=== PATIENT | male | born 1935 | race Caucasian/White ===

== ENCOUNTER 2019-02-28 07:53 | Outpatient (CLI) | payer MEDICARE, OTHER | END 2019-02-28 23:59 | disposition home or self-care (01) | LOC: CVU 07:53 | PROVIDERS: ATTEND Nurse Practitioner Family | DX: I08.3 Combined rheumatic disorders of mitral, aortic and tricuspid valves (principal); I10 Essential (primary) hypertension; I48.91 Unspecified atrial fibrillation; E78.5 Hyperlipidemia, unspecified; Z85.038 Personal history of other malignant neoplasm of large intestine; Z95.0 Presence of cardiac pacemaker | CPT/HCPCS: 93306 ==

== ENCOUNTER 2020-04-24 11:36 | Inpatient (IN) | payer MEDICARE, OTHER ==
[~2020-04-24] VITALS: Ht 188 cm; Wt 84.9 kg
[~2020-04-24 11:36] MED LIST: ACID1TAB7 PO; FERR-51 PO; LISI20TA21 PO; OMEP-110 PO; RIVA20TA PO; SUCR1ORA5 PO; TAMS-11 PO; amlodipine PO; eliquis PO; lovastatin PO
--- NOTE | 2020-04-24 12:08 | NUR ---
small package and bundle sorter clerk: pt from lobby to room 8
[2020-04-24 13:21] LABS: BASOPHILS % (AUTO) 1 % (0-1); EOSINOPHILS % (AUTO) 1 % (1-7); LYMPHOCYTES % (AUTO) 11 % (22-44); MD NO; MEAN CORPUSCULAR HEMOGLOBIN 35.9 pg (27.5-34.5); MEAN CORPUSCULAR HGB CONC 33.4 g/dL (33.2-36.2); MEAN PLATELET VOLUME 7.7 fL (7.4-10.4); MONOCYTES % (AUTO) 8 % (2-9); NEUTROPHILS % (AUTO) 80 % (42-75); PLATELET COUNT 215 x10^3/uL (130-400); RED BLOOD COUNT 3.59 x10^6/uL (4.38-5.82)
[2020-04-24 13:31] LABS: INTERNATIONAL NORMALIZED RATIO 1.36 (0.93-1.1); PROTHROMBIN TIME 14.5 Seconds (9.6-11.5)
[2020-04-24 13:32] LABS: ALANINE AMINOTRANSFERASE 102 U/L (12-78); ALBUMIN 2.6 g/dL (3.4-5.0); ANION GAP 7 mmol/L (5-15); CALCIUM 8.8 mg/dL (8.5-10.1); CHLORIDE 104 mmol/L (98-107); CREATININE 1.14 mg/dL (0.7-1.3)
[2020-04-24 13:35] LABS: ALKALINE PHOSPHATASE 742 U/L (45-117); BILIRUBIN,TOTAL 13.7 mg/dL (0.2-1.0); TOTAL PROTEIN 6.7 g/dL (6.4-8.2)
[2020-04-24] MEDS ORDERED: OMEP-110 PO (14:46)
[2020-04-24] MEDS ORDERED: MULT-717 PO (14:51)
[2020-04-24] MEDS ORDERED: FERR-46 PO (14:51)
[2020-04-24] MEDS ORDERED: CALC-780 PO (14:51)
[2020-04-24] MEDS ORDERED: LISI-170 PO (14:51)
--- NOTE | 2020-04-24 14:56 | NUR ---
dr glaser spoke with dr snow
[2020-04-24] MEDS ORDERED: SODIUM CHLORIDE FLUSH 10ML SYR IVF PRN (15:00)
[2020-04-24] MEDS ORDERED: MELATONIN 5 MG TABLET PO PRN (16:00)
[2020-04-24] MEDS ORDERED: POLYETHYLENE GLYCOL 17 GM PACKET PO PRN (16:00)
[2020-04-24] MEDS ORDERED: hydrALAzine 20 MG/ML, 1ML IVPush PRN (16:00)
[2020-04-24] MEDS ORDERED: BISACODYL 10 MG SUPP PR PRN (16:00)
[2020-04-24] MEDS ORDERED: DOCUSATE 100 MG CAPSULE PO PRN (16:00)
[2020-04-24] MEDS ORDERED: ONDANSETRON 2MG/ML, 2ML IVPush PRN (16:00)
[2020-04-24] MEDS ORDERED: LORazepam 2 MG/ML, 1ML IVPush PRN (16:00)
[2020-04-24] MEDS ORDERED: ZOLPIDEM 5MG TABLET PO PRN (16:00)
[2020-04-24] MEDS ORDERED: ACETAMINOPHEN 325 MG TABLET PO PRN (16:00)
--- NOTE | 2020-04-24 16:12 | NUR ---
MRI called, requested pacemaker card be faxed. Faxed by TOMMIE Orourke.
--- NOTE | 2020-04-24 17:18 | NUR ---
Pt up to bathroom without assistance.
[2020-04-24 18:12] LABS: FREE T4 (FREE THYROXINE) 1.31 ng/dL (0.76-1.46)
--- NOTE | 2020-04-24 18:20 | NUR ---
First attempt to call report.
[2020-04-24] MEDS ORDERED: OMNIPAQUE 350 MG/ML, 100ML BOTTLE ONE (18:54)
--- NOTE | 2020-04-24 19:02 | NUR ---
This RN attempted to call report 3 times, including asking to give report to underwriting clerks supervisor.
--- NOTE | 2020-04-24 19:08 | NUR ---
Pt to be admitted to [facility], room 421. Report called to Cherry Walker.
[2020-04-24 19:20] VITALS: BP 125/70
[2020-04-24 19:30] VITALS: BP 125/70
[2020-04-24 20:20] VITALS: BP 120/74
[2020-04-24] MEDS ORDERED: PIPERACILLIN/TAZO/PMX 3.375GM 50 ML IV SCH (20:30)
[2020-04-24] MEDS: FAMOTIDINE 20 MG TABLET PO SCH (21:20)
[2020-04-25 01:25] VITALS: BP 117/82
[2020-04-25 05:04] LABS: BASOPHILS % (AUTO) 0 % (0-1); EOSINOPHILS % (AUTO) 3 % (1-7); LYMPHOCYTES % (AUTO) 15 % (22-44); MEAN CORPUSCULAR HEMOGLOBIN 36.3 pg (27.5-34.5); MEAN CORPUSCULAR HGB CONC 34.6 g/dL (33.2-36.2); MEAN PLATELET VOLUME 8.1 fL (7.4-10.4); MONOCYTES % (AUTO) 12 % (2-9); NEUTROPHILS % (AUTO) 70 % (42-75); PLATELET COUNT 195 x10^3/uL (130-400); RED CELL DISTRIBUTION WIDTH 14.2 % (9.4-14.8)
[2020-04-25 05:07] LABS: MD NO
[2020-04-25 05:13] LABS: ALBUMIN 2.3 g/dL (3.4-5.0); ANION GAP 7 mmol/L (5-15); CALCIUM 8.7 mg/dL (8.5-10.1); CHLORIDE 107 mmol/L (98-107)
[2020-04-25 05:17] LABS: ALANINE AMINOTRANSFERASE 104 U/L (12-78); ALKALINE PHOSPHATASE 746 U/L (45-117); BILIRUBIN,TOTAL 12.8 mg/dL (0.2-1.0); CREATININE 1.02 mg/dL (0.7-1.3)
[2020-04-25 07:29] VITALS: BP 147/80
[2020-04-25] MEDS: FAMOTIDINE 20 MG TABLET PO SCH ×2 (08:23→20:49)
[2020-04-25] MEDS: D5%-0.45% NACL 1,000 ML IV SCH ×2 (09:22→23:18)
[2020-04-25] MEDS: CEFTRIAXONE PMX 1GM/50ML 50 ML IV SCH (10:59)
[2020-04-25 14:08] VITALS: BP 129/75
[2020-04-25 16:24] LABS: ANA SCREEN NEGATIVE (Negative)
[2020-04-25 19:43] VITALS: BP 140/82
[2020-04-26 01:41] VITALS: BP 134/74
[2020-04-26 06:44] LABS: BASOPHILS % (AUTO) 1 % (0-1); EOSINOPHILS % (AUTO) 5 % (1-7); LYMPHOCYTES % (AUTO) 18 % (22-44); MEAN CORPUSCULAR HGB CONC 34.2 g/dL (33.2-36.2); MEAN PLATELET VOLUME 8.8 fL (7.4-10.4); MONOCYTES % (AUTO) 12 % (2-9); NEUTROPHILS % (AUTO) 64 % (42-75); PLATELET COUNT 199 x10^3/uL (130-400); RED BLOOD COUNT 3.31 x10^6/uL (4.38-5.82); RED CELL DISTRIBUTION WIDTH 14.5 % (9.4-14.8)
[2020-04-26 06:48] VITALS: BP 134/74
[2020-04-26 06:48] LABS: MD NO
[2020-04-26 07:00] LABS: ALBUMIN 2.2 g/dL (3.4-5.0); ANION GAP 8 mmol/L (5-15); CALCIUM 8.4 mg/dL (8.5-10.1); CHLORIDE 105 mmol/L (98-107)
[2020-04-26 07:04] LABS: BILIRUBIN,INDIRECT 2.3 mg/dL (0.0-2.0); BILIRUBIN,TOTAL 12.5 mg/dL (0.2-1.0); TOTAL PROTEIN 5.9 g/dL (6.4-8.2)
[2020-04-26] MEDS: FAMOTIDINE 20 MG TABLET PO SCH ×2 (07:40→21:02)
[2020-04-26 07:44] LABS: BILIRUBIN, DIRECT 10.2 mg/dL (0.1-0.2)
[2020-04-26] MEDS: CEFTRIAXONE PMX 1GM/50ML 50 ML IV SCH (10:01)
[2020-04-26] MEDS: D5%-0.45% NACL 1,000 ML IV SCH (10:02)
[2020-04-26] MEDS ORDERED: CHLORHEXIDINE 15 ML UDC ONE ×2 (12:25)
[2020-04-26] MEDS ORDERED: CHLORHEXIDINE 15 ML UDC MM ONE (12:30)
[2020-04-26] MEDS ORDERED: PROPOFOL 10 MG/ML, 20ML ONE (12:50)
[2020-04-26] MEDS ORDERED: SUCCINYLCHOLINE 20 MG/ML, 10ML ONE (12:50)
[2020-04-26] MEDS ORDERED: FENTANYL PF 100 MCG/2ML ONE (12:50)
[2020-04-26] MEDS ORDERED: ROCURONIUM 10MG/ML,5ML ONE (12:58)
[2020-04-26] MEDS ORDERED: ONDANSETRON 2MG/ML, 2ML ONE (13:18)
[2020-04-26 13:22] LABS: INTERNATIONAL NORMALIZED RATIO 1.16 (0.93-1.1); PROTHROMBIN TIME 12.4 Seconds (9.6-11.5)
[2020-04-26] MEDS ORDERED: OMNIPAQUE 350 MG/ML, 50 ML BOTTLE ONE (13:26)
[2020-04-26 14:25] VITALS: BP 138/87
[2020-04-26 19:47] VITALS: BP 131/77
[2020-04-27 01:38] VITALS: BP 132/73
[2020-04-27] MEDS ORDERED: BUPIVACAINE/PF 0.5% ONE (06:17)
[2020-04-27] MEDS ORDERED: EPINEPHRINE 1 MG/ML, 1ML ONE (06:18)
[2020-04-27] MEDS ORDERED: FENTANYL PF 100 MCG/2ML ONE (07:01)
[2020-04-27] MEDS ORDERED: SUCCINYLCHOLINE 20 MG/ML, 10ML ONE (07:23)
[2020-04-27] MEDS ORDERED: PROPOFOL 10 MG/ML, 20ML ONE (07:23)
[2020-04-27] MEDS ORDERED: ONDANSETRON 2MG/ML, 2ML ONE (07:23)
[2020-04-27] MEDS ORDERED: LIDOCAINE-MPF 2% ,5ML ONE (07:23)
[2020-04-27] MEDS ORDERED: SUGAMMADEX 200 MG/2 ML IVPush ONE (07:23)
[2020-04-27] MEDS ORDERED: ROCURONIUM 10MG/ML,5ML ONE (07:23)
[2020-04-27] MEDS ORDERED: CEFOTETAN 2 GM ONE (07:23)
[2020-04-27] MEDS ORDERED: DEXAMETHASONE 4 MG/ML, 5ML ONE (07:23)
[2020-04-27] MEDS ORDERED: FENTANYL PF 100 MCG/2ML IV PRN (07:30)
[2020-04-27] MEDS ORDERED: PROMETHAZINE 25 MG/ML, 1ML IVPush PRN (07:30)
[2020-04-27] MEDS ORDERED: MAGNESIUM SULFATE PMX 2GM/50ML 50 ML IV ONE (07:30)
[2020-04-27] MEDS ORDERED: ONDANSETRON 2MG/ML, 2ML IVPush PRN (07:30)
[2020-04-27] MEDS ORDERED: HYDROcodone/APAP 7.5-325MG/15ML UDC PO PRN (07:30)
[2020-04-27] MEDS ORDERED: MEPERIDINE/PF 25MG/0.5ML IVPush PRN (07:30)
[2020-04-27] MEDS ORDERED: OXYcodone 5 MG/5 ML ORAL.SOL UDC PO PRN (07:30)
[2020-04-27] MEDS ORDERED: HYDROmorphone 1 MG/ML, 1ML INJ IVPush PRN (07:30)
[2020-04-27] MEDS ORDERED: BUPIVACAINE/PF-EPI 0.5% 1:200K INFIL ONE (08:07)
[2020-04-27] MEDS ORDERED: HYDROcodone/APAP 7.5-325MG/15ML UDC ONE (08:28)
[2020-04-27 09:24] VITALS: BP 159/79
[2020-04-27] MEDS: FAMOTIDINE 20 MG TABLET PO SCH ×2 (09:24→21:02)
[2020-04-27] MEDS: CEFTRIAXONE PMX 1GM/50ML 50 ML IV SCH (09:26)
[2020-04-27] MEDS ORDERED: morphine SULFATE 10 MG/ML, 1ML ONE (09:44)
[2020-04-27] MEDS ORDERED: MORPHINE SULFATE 4 MG/ML, 1ML IVPush ONE (10:00)
[2020-04-27] MEDS ORDERED: morphine SULFATE 10 MG/ML, 1ML IV PRN (10:30)
[2020-04-27] MEDS ORDERED: ONDANSETRON 2MG/ML, 2ML IV PRN (10:30)
[2020-04-27] MEDS ORDERED: HYDROmorphone 2 MG/ML, 1ML IVPush PRN ×2 (10:30)
[2020-04-27] MEDS: CEFOTETAN PMX 1GM/50ML 50 ML IV SCH ×2 (10:51→23:23)
[2020-04-27] MEDS: POTASSIUM CHLORIDE 20 MEQ in LACTATED RINGERS 1,000 ML IV SCH (10:51)
[2020-04-27] MEDS: ENOXAPARIN 40 MG/0.4 ML SQ SCH (11:23)
[2020-04-27 11:52] LABS: ALBUMIN 2.6 g/dL (3.4-5.0)
[2020-04-27 11:54] LABS: BILIRUBIN,INDIRECT 2.1 mg/dL (0.0-2.0); BILIRUBIN,TOTAL 14.5 mg/dL (0.2-1.0); TOTAL PROTEIN 6.9 g/dL (6.4-8.2)
[2020-04-27 12:04] LABS: BILIRUBIN, DIRECT 12.4 mg/dL (0.1-0.2)
[2020-04-27 15:15] VITALS: BP 148/79
[2020-04-27 19:24] VITALS: BP 150/85
[2020-04-27] MEDS: OXYcodone IR 5MG TABLET PO PRN (21:02)
[2020-04-28 01:21] VITALS: BP 140/83
[2020-04-28] MEDS: POTASSIUM CHLORIDE 20 MEQ in LACTATED RINGERS 1,000 ML IV SCH (02:58)
[2020-04-28 06:47] VITALS: BP 158/85
[2020-04-28] MEDS: FAMOTIDINE 20 MG TABLET PO SCH ×2 (08:31→19:52)
[2020-04-28] MEDS: OXYcodone IR 5MG TABLET PO PRN ×2 (08:31→15:41)
[2020-04-28 09:24] LABS: BASOPHILS % (AUTO) 0 % (0-1); EOSINOPHILS % (AUTO) 0 % (1-7); LYMPHOCYTES % (AUTO) 13 % (22-44); MEAN CORPUSCULAR HEMOGLOBIN 35.9 pg (27.5-34.5); MEAN CORPUSCULAR HGB CONC 34.1 g/dL (33.2-36.2); MEAN PLATELET VOLUME 8.5 fL (7.4-10.4); MONOCYTES % (AUTO) 9 % (2-9); NEUTROPHILS % (AUTO) 78 % (42-75); PLATELET COUNT 225 x10^3/uL (130-400); RED BLOOD COUNT 3.44 x10^6/uL (4.38-5.82); RED CELL DISTRIBUTION WIDTH 14.1 % (9.4-14.8)
[2020-04-28 09:28] LABS: MD NO
[2020-04-28 09:38] LABS: ANION GAP 6 mmol/L (5-15); CALCIUM 8.6 mg/dL (8.5-10.1); CHLORIDE 103 mmol/L (98-107); CREATININE 0.83 mg/dL (0.7-1.3)
[2020-04-28 09:43] LABS: ALBUMIN 2.3 g/dL (3.4-5.0)
[2020-04-28 09:45] LABS: BILIRUBIN,INDIRECT 1.5 mg/dL (0.0-2.0); BILIRUBIN,TOTAL 9.5 mg/dL (0.2-1.0); TOTAL PROTEIN 6.1 g/dL (6.4-8.2)
[2020-04-28] MEDS: CEFTRIAXONE PMX 1GM/50ML 50 ML IV SCH (10:22)
[2020-04-28] MEDS: ENOXAPARIN 40 MG/0.4 ML SQ SCH (11:18)
[2020-04-28 12:36] VITALS: BP 156/81
[2020-04-28 18:41] VITALS: BP 145/72
[2020-04-29] VITALS: BP 132/79
[2020-04-29 05:02] LABS: INTERNATIONAL NORMALIZED RATIO 1.11 (0.93-1.1); PROTHROMBIN TIME 11.9 Seconds (9.6-11.5)
[2020-04-29 05:06] LABS: ALANINE AMINOTRANSFERASE 93 U/L (12-78); ALBUMIN 2.1 g/dL (3.4-5.0); ANION GAP 4 mmol/L (5-15); CALCIUM 8.2 mg/dL (8.5-10.1); CHLORIDE 104 mmol/L (98-107); CREATININE 0.82 mg/dL (0.7-1.3)
[2020-04-29 05:07] LABS: ALKALINE PHOSPHATASE 803 U/L (45-117); BILIRUBIN,TOTAL 7.8 mg/dL (0.2-1.0); TOTAL PROTEIN 5.9 g/dL (6.4-8.2)
[2020-04-29 05:14] LABS: BASOPHILS % (AUTO) 1 % (0-1); EOSINOPHILS % (AUTO) 2 % (1-7); LYMPHOCYTES % (AUTO) 19 % (22-44); MEAN CORPUSCULAR HEMOGLOBIN 36.4 pg (27.5-34.5); MEAN CORPUSCULAR HGB CONC 34.8 g/dL (33.2-36.2); MEAN PLATELET VOLUME 8.3 fL (7.4-10.4); MONOCYTES % (AUTO) 13 % (2-9); NEUTROPHILS % (AUTO) 66 % (42-75); PLATELET COUNT 224 x10^3/uL (130-400); RED BLOOD COUNT 3.24 x10^6/uL (4.38-5.82); RED CELL DISTRIBUTION WIDTH 14.3 % (9.4-14.8)
[2020-04-29] MEDS: OXYcodone IR 5MG TABLET PO PRN (05:34)
[2020-04-29 05:59] LABS: MD SCAN
[2020-04-29 07:31] VITALS: BP 148/84
[2020-04-29] MEDS: FAMOTIDINE 20 MG TABLET PO SCH (08:18)
[2020-04-29] MEDS: CEFTRIAXONE PMX 1GM/50ML 50 ML IV SCH (08:33)
[2020-04-29] MEDS ORDERED: CEFD300C37 PO (09:19)
[2020-04-29 12:28] VITALS: BP 135/76
[2020-04-29] MEDS ORDERED: RIVAROXABAN 20 MG TABLET PO SCH (17:00)
== END 2020-04-29 12:38 | disposition home health service (06) | DRG 418 ==
LOC: ED 12:35 → EDIP 14:50 → 4WST 19:16 → DCLOUNGE 04-29 12:31
PROVIDERS: ADMIT Internal Medicine; ATTEND Internal Medicine
PROC: BF131ZZ Fluoroscopy of Gallbladder and Bile Ducts using Low Osmolar Contrast (ICD-10-PCS; 2020-04-26)
PROC: 0FC98ZZ Extirpation of Matter from Common Bile Duct, Via Natural or Artificial Opening Endoscopic (ICD-10-PCS; principal; 2020-04-26 13:00)
PROC: 0FT44ZZ Resection of Gallbladder, Percutaneous Endoscopic Approach (ICD-10-PCS; 2020-04-27)
PROC: 0WQF0ZZ Repair Abdominal Wall, Open Approach (ICD-10-PCS; 2020-04-27)
PROC: 0DNW4ZZ Release Peritoneum, Percutaneous Endoscopic Approach (ICD-10-PCS; 2020-04-27)
DX: K80.63 Calculus of gallbladder and bile duct with acute cholecystitis with obstruction (principal); I48.20 Chronic atrial fibrillation, unspecified; K25.9 Gastric ulcer, unspecified as acute or chronic, without hemorrhage or perforation; K42.9 Umbilical hernia without obstruction or gangrene; E78.5 Hyperlipidemia, unspecified; I10 Essential (primary) hypertension; Z96.643 Presence of artificial hip joint, bilateral; D72.829 Elevated white blood cell count, unspecified; Z20.822 Contact with and (suspected) exposure to COVID-19; Z79.01 Long term (current) use of anticoagulants; Z80.42 Family history of malignant neoplasm of prostate; Z82.49 Family history of ischemic heart disease and other diseases of the circulatory system; Z85.038 Personal history of other malignant neoplasm of large intestine; Z87.891 Personal history of nicotine dependence; Z95.0 Presence of cardiac pacemaker; Z90.49 Acquired absence of other specified parts of digestive tract; Z88.2 Allergy status to sulfonamides
CPT/HCPCS: 36415; 71045; 74160; 74328; 76700; 80048; 80053; 80074; 80076; 82105; 82140; 82378; 82607; 82787; 83516; 83690; 83735; 84100; 84439; 84443; 85025; 85610; 85730; 86038; 86301; 87635; 88304; 93005; 93306; 99285; G0378; J0171; J0696; J1100; J1650; J2405; J2704; J3010; J3480; Q9967; C1769; J0330; J2270; J3475; J7120

== ENCOUNTER → 2020-05-22 | Outpatient (CLI) | payer MEDICARE, OTHER ==
[~2020-05-22] MED LIST changes: +CALC-780 PO; +CEFD300C37 PO; +FERR-46 PO; +LISI-170 PO; +MULT-717 PO
== END | disposition home or self-care (01) ==
LOC: RAD 12:32
PROVIDERS: ATTEND Surgery
DX: K80.12 Calculus of gallbladder with acute and chronic cholecystitis without obstruction (principal); R17 Unspecified jaundice
CPT/HCPCS: 78226; A9537

== ENCOUNTER 2020-07-06 16:36 | Emergency (ER) | payer MEDICARE, OTHER ==
[~2020-07-06] VITALS: Ht 188 cm; Wt 94.1 kg
--- NOTE | 2020-07-06 16:59 | NUR ---
MANIFEST CLERK: PT TO ROOM FROM TRIAGE VIA W/C
--- NOTE | 2020-07-06 17:18 | NUR ---
PT AMBULATORY TO ROOM 12 W/ C/O BILAT PITTING EDEMA, ERYTHEMA AND SCRAPES TO BILAT TOES. PER PT SCRAPED BILAT TOES ON THE SIDEWALK 2 DAYS AGO AFTER THE SWELLING TO FEEET HAD STARTED. PT STATES HE IS NOT UTD ON TETANUS SHOT. +NUMBNESS TO BILAT FEET. DENIES HX CHF. PT RESTING ON GURNEY. NADN. MONITORS APPLIED. VSS. WARM BLANKET PROVIDED.
[2020-07-06 18:32] LABS: BASOPHILS % (AUTO) 2 % (0-1); EOSINOPHILS % (AUTO) 11 % (1-7); LYMPHOCYTES % (AUTO) 25 % (22-44); MEAN CORPUSCULAR HEMOGLOBIN 34.3 pg (27.5-34.5); MEAN CORPUSCULAR HGB CONC 33.8 g/dL (33.2-36.2); MONOCYTES % (AUTO) 11 % (2-9); NEUTROPHILS % (AUTO) 52 % (42-75); PLATELET COUNT 172 x10^3/uL (130-400); RED BLOOD COUNT 3.92 x10^6/uL (4.38-5.82); RED CELL DISTRIBUTION WIDTH 12.9 % (9.4-14.8)
[2020-07-06 18:46] LABS: ALBUMIN 3.5 g/dL (3.4-5.0); ANION GAP 8 mmol/L (5-15); CALCIUM 8.8 mg/dL (8.5-10.1); CHLORIDE 98 mmol/L (98-107)
[2020-07-06 18:52] LABS: ALANINE AMINOTRANSFERASE 28 U/L (12-78); ALKALINE PHOSPHATASE 180 U/L (45-117); BILIRUBIN,TOTAL 1.3 mg/dL (0.2-1.0); C-REACTIVE PROTEIN, QUANT 0.51 mg/dL (0.02-0.49); CREATININE 0.72 mg/dL (0.7-1.3); TOTAL PROTEIN 6.9 g/dL (6.4-8.2)
[2020-07-06] MEDS ORDERED: CEPHALEXIN 500 MG CAPSULE PO ONE (19:30)
[2020-07-06] MEDS ORDERED: FUROSEMIDE 20 MG TABLET ONE (19:30)
[2020-07-06] MEDS ORDERED: CEPHALEXIN 500 MG CAPSULE ONE (19:30)
[2020-07-06] MEDS ORDERED: FUROSEMIDE 20 MG TABLET PO ONE (19:30)
[2020-07-06 19:43] VITALS: BP 135/61
--- NOTE | 2020-07-06 19:44 | NUR ---
SPOKE W/ ERP DR. KERNS IN REGARDS TO PT SCRAPE ON SIDEWALK AND PT STATES NOT UTD ON TETANUS SHOT. PT NOW STATES HE THINKS HE HAD HIS TETANUS SHOT AROUND [address] YEARS AGO[address] PER ERP [address]. KERNS NO NEED FOR TETANUS SHOT THIS ED VISIT.
[2020-07-20] MEDS ORDERED: AMLO-211 PO (07:11)
[2020-07-22] MEDS ORDERED: FURO-93 PO (11:43)
[2020-07-22] MEDS ORDERED: POTA20TA14 PO (11:43)
== END 2020-07-06 19:46 | disposition home or self-care (01) ==
LOC: ED 19:06
DX: I87.2 Venous insufficiency (chronic) (peripheral) (principal); L03.115 Cellulitis of right lower limb; L03.116 Cellulitis of left lower limb; I10 Essential (primary) hypertension; E87.1 Hypo-osmolality and hyponatremia; I48.91 Unspecified atrial fibrillation; Z95.0 Presence of cardiac pacemaker; Z90.49 Acquired absence of other specified parts of digestive tract; Z88.2 Allergy status to sulfonamides; Z85.038 Personal history of other malignant neoplasm of large intestine; Z87.891 Personal history of nicotine dependence
CPT/HCPCS: 36415; 80053; 83880; 85025; 86140; 99284